=== PATIENT | female | born 1980 | race Caucasian/White ===

== ENCOUNTER 2016-09-04 23:41 | Emergency (ER) | payer OTHER ==
--- NOTE | ~2016-09-04 | CR63 ---
[facility]. [facility] A Service of [facility] & [facility] RADIOLOGY TEXT RESULTS PATIENT: NACHO ALVARADO LOCATION: SED : [birth year] UNIT #: [id number] AGE: [address]: Ron Keen MD SEX: F ORDER DR: [id number] [address] [address] [id number] E MR#: [id number] Acc #: [id number] NAME: NACHO ALVARADO : 1980 SEX: F STUDY DATE/TIME: 09/05/2016 0:17 UNIT: SED ROOM: STUDY DESCRIPTION: CR Chest 2 View Attending Physician: Ron Keen M.D. Ordering Physician: Ron Keen M.D. Primary Care Physician: Johanna Aldana MEDICAL IMAGING REPORT This report is preliminary unless electronic signature is present. EXAM Two-view chest. INDICATIONS Chest pain for 1 week. FINDINGS Single portable AP view of the chest compared to 08/21/2015. Heart and mediastinal contours are normal. Lungs are clear. No pleural effusion. IMPRESSION Negative chest radiograph. Dictated by... Ilya Da Silva M.D. THIS IS AN ELECTRONICALLY VERIFIED REPORT Ilya Da Silva M.D. at 09/06/2016 1:01 AM JOAN/[place] TD: 09/05/2016 15:37 JOB #: [id number] MEDICAL IMAGING REPORT Page 1 of 1
[~2016-09-04 23:41] MED LIST: ALBUTEROL17 GM INH; AMOXICILLIN875 MG PO; ANXIETY; BACTRIM DS TABL1 TA1 PO; BACTRIM DS TABL1 TAB PO; BROMPHED DM PO; BUSPIRONE HCL7.5 MG PO; DICLOFENAC PO; IBUPROFEN PO; LEXAPRO PO; LOMOTIL TABLET1 TAB PO; LORTAB 10-5001 EACH PO; LORTAB 5/500 TA1 TA1 PO; MOTRIN100 MG PO; MOTRIN600 MG PO; MULTI-VITAMIN1 EAC1 PO; NO MEDICATIONS; OMEPRAZOLE; PANTOPRAZOLE SO40 MG PO; PEN-VEE K PO; PRILOSEC PO; PROMETHAZI6.25 MG/5 PO; PROTONIX PO; PYRIDIUM PO; REGLAN10 MG PO; ULTRAM PO; VITAMIN B 12 PO; VITAMIN C500 M6 PO; VOLTAREN75 MG PO; ZOFRAN ODT PO; ZOFRAN ODT4 MG/UDTAB PO; [UNRECOGNIZED DRUG - OTHER] PO
[2016-09-04] MEDS ORDERED: ALBUTEROL17 GM INH (23:50)
[2016-09-04] MEDS ORDERED: MIRTAZAPINE30 M1 PO (23:50)
[2016-09-04] MEDS ORDERED: LAMICTAL100 MG PO (23:50)
[2016-09-04] MEDS ORDERED: BREO ELLIPTA I1 EACH INH (23:50)
[2016-09-04] MEDS ORDERED: SINGULAIR4 MG PO (23:51)
[2016-09-04] MEDS ORDERED: ZANTAC150 MG PO (23:51)
[2016-09-04] MEDS ORDERED: BENTYL10 M1 PO (23:52)
== END 2016-09-05 01:00 | disposition home or self-care (01) ==
LOC: SED 23:41
DX: K21.0 Gastro-esophageal reflux disease with esophagitis (principal); J45.909 Unspecified asthma, uncomplicated; F41.9 Anxiety disorder, unspecified; J44.9 Chronic obstructive pulmonary disease, unspecified; M41.9 Scoliosis, unspecified; F17.200 Nicotine dependence, unspecified, uncomplicated
CPT/HCPCS: 71020; 99284

== ENCOUNTER 2016-11-09 07:54 | Emergency (ER) | payer OTHER ==
--- NOTE | ~2016-11-09 | CR63 ---
[facility]. [facility] A Service of [facility] & [facility] RADIOLOGY TEXT RESULTS PATIENT: SYDNEE MAGAÑA LOCATION: SED : [birth year] UNIT #: [id number] AGE: [address]: Sydnee Grossman MD SEX: F ORDER DR: [id number] [address] [address] [id number] E MR#: [id number] Acc #: [id number] NAME: SYDNEE MAGAÑA : 1980 SEX: F STUDY DATE/TIME: 11/09/2016 8:49 UNIT: SED ROOM: STUDY DESCRIPTION: CR Chest 2 View Attending Physician: Sydnee Grossman M.D. Ordering Physician: Sydnee Grossman M.D. Primary Care Physician: Johanna Veras Aprn [place] MEDICAL IMAGING REPORT This report is preliminary unless electronic signature is present. EXAM Chest PA and lateral 11/09/2016 HISTORY Cough and wheezing for 1 week. Smoking history for 18 years. FINDINGS Two views of the chest were obtained. The lungs are clear. The heart and mediastinum have a normal contour, and the heart size is normal. No pleural effusions are seen. The lungs are hyperinflated, consistent with chronic obstructive pulmonary disease. There is no evidence of active disease. IMPRESSION Chronic obstructive pulmonary disease. No active disease. Dictated by... Daljit Maldonado M.D. THIS IS AN ELECTRONICALLY VERIFIED REPORT Dajlit Maldonado M.D. at 11/10/2016 10:34 AM GREY/[place] TD: 11/09/2016 09:30 JOB #: [id number] MEDICAL IMAGING REPORT Page 1 of 1
[~2016-11-09 07:54] MED LIST changes: +BENTYL10 M1 PO; +BREO ELLIPTA I1 EACH INH; +LAMICTAL100 MG PO; +MIRTAZAPINE30 M1 PO; +SINGULAIR4 MG PO; +ZANTAC150 MG PO
[2016-11-09] MEDS ORDERED: PREDNISONE PO (08:14)
[2016-11-09] MEDS ORDERED: OMNICEF PO (08:14)
== END 2016-11-09 09:49 | disposition home or self-care (01) ==
LOC: SED 07:54
DX: J20.9 Acute bronchitis, unspecified (principal); J44.9 Chronic obstructive pulmonary disease, unspecified; J45.909 Unspecified asthma, uncomplicated; K21.9 Gastro-esophageal reflux disease without esophagitis; F17.200 Nicotine dependence, unspecified, uncomplicated; Z90.710 Acquired absence of both cervix and uterus; Z79.899 Other long term (current) drug therapy
CPT/HCPCS: 71020; 94640; 96372; 99283; J2930